=== PATIENT | male | born 1960 | race Caucasian/White ===

== ENCOUNTER 2024-09-04 12:05 | Day surgery (SDC) | payer OTHER ==
[2024-09-04] MEDS: IRON SUCROSE INJECTION 200 MG in SODIUM CHLORIDE 100 ML IVPB ONE (12:19)
[2024-09-04 16:03] VITALS: RESP 20; TEMP 97.6
[2024-09-04 16:07] VITALS: BP 132/66; PULSE 74
== END 2024-09-04 13:30 | disposition home or self-care (01) ==
LOC: JONCNONCHE 12:05
PROVIDERS: ATTEND Internal Medicine Hematology & Oncology
PROC: 3E033GC Introduction of Other Therapeutic Substance into Peripheral Vein, Percutaneous Approach (ICD-10-PCS; principal; 2024-09-04)
DX: D50.9 Iron deficiency anemia, unspecified (principal)
CPT/HCPCS: 96365; J1756